=== PATIENT | female | born 2000 | race Two or more races ===

== ENCOUNTER 2020-06-04 00:41 | Emergency (ER) | payer MEDICAID ==
[~2020-06-04] VITALS: Ht 154.9 cm; Wt 52.2 kg
[2020-06-04] MEDS ORDERED: KETOROLAC TROMETHAMINE 60 MG INJ IM ONE ×2 (01:15→01:25)
--- NOTE | 2020-06-04 01:43 | NUR ---
ER MD at bedside with female classer for pelvic exam
[2020-06-04] MEDS ORDERED: AZITHROMYCIN 250 MG TABLET ONE (02:00)
[2020-06-04] MEDS ORDERED: CEFTRIAXONE 500 MG VIAL IM ONE (02:00)
[2020-06-04] MEDS ORDERED: FLUCONAZOLE 100 MG TABLET ONE (02:00)
[2020-06-04] MEDS ORDERED: FLUCONAZOLE 100 MG TABLET PO ONE (02:00)
[2020-06-04] MEDS ORDERED: CEFTRIAXONE 500 MG VIAL ONE (02:00)
[2020-06-04] MEDS ORDERED: AZITHROMYCIN 250 MG TABLET PO ONE (02:00)
[2020-06-04] MEDS ORDERED: LIDOCAINE HCL 2% 20 ML VIAL ONE (02:01)
[2020-06-04 03:20] VITALS: BP 128/75
--- NOTE | 2020-06-04 03:20 | NUR ---
Patient discharged to home in stable condition. Written and verbal after care instructions given. Patient verbalizes understanding of instructions. Stressed follow up or return to ER for worsening s/s. Ambulated from ER with stable gait. All belongings with patient.
[2020-06-04 03:21] LABS: BASOPHILS % (AUTO) 0.3 % (0.0-2.0); EOSINOPHILS % (AUTO) 0.4 % (0.0-7.0); HEMATOCRIT 35.3 % (31.2-41.9); HEMOGLOBIN 12.3 g/dL (10.9-14.3); LYMPHOCYTES # (AUTO) 1.6 K/uL (20.0-40.0); LYMPHOCYTES % (AUTO) 14.6 % (20.5-74.5); MEAN CORPUSCULAR HEMOGLOBIN 33.6 uug (24.7-32.8); MEAN CORPUSCULAR HGB CONC 35 g/dL (32.3-35.6); MEAN CORPUSCULAR VOLUME 96.5 fL (75.5-95.3); MONOCYTES # (AUTO) 0.7 K/uL (2.0-10.0); NEUTROPHILS # (AUTO) 8.8 K/uL (1.8-8.9); NEUTROPHILS % (AUTO) 78.7 % (31.5-64.5); PLATELET COUNT (AUTO) 209 K/uL (179-408); RED BLOOD CELL COUNT(AUTO) 3.65 MIL/uL (3.63-4.92); WHITE BLOOD COUNT (AUTO) 11.2 K/uL (3.8-11.8)
[2020-06-04 03:29] LABS: CREATININE 0.7 mg/dL (0.6-1.3); POTASSIUM 3.2 mmol/L (3.5-5.1)
[2020-06-04 03:34] LABS: BILIRUBIN,DIRECT 0.1 mg/dL (0.0-0.2); BILIRUBIN,TOTAL 0.2 mg/dL (0.2-1.0)
== END 2020-06-04 03:20 | disposition home or self-care (01) ==
LOC: ER 00:43
DX: B37.3 Candidiasis of vulva and vagina (principal); R10.2 Pelvic and perineal pain; R00.0 Tachycardia, unspecified; N86 Erosion and ectropion of cervix uteri
CPT/HCPCS: 36415; 76856; 80048; 80076; 83690; 85025; 96372 ×2; 99284; J0696; J1885; J3490; A4663; Q0144

== ENCOUNTER 2020-06-05 20:19 | Emergency (ER) | payer MEDICAID ==
[~2020-06-05] VITALS: Ht 157.5 cm; Wt 52.2 kg
[2020-06-05] MEDS ORDERED: KETOROLAC TROMETHAMINE 60 MG INJ IM ONE ×2 (20:57→21:00)
--- NOTE | 2020-06-05 21:15 | NUR ---
Patient out of unit for US via wheelchair..
--- NOTE | 2020-06-05 21:34 | NUR ---
Patient back from US with no distress noted.
[2020-06-05 21:37] LABS: *BILIRUBIN,URIN NEGATIVE (NEGATIVE); *BLOOD, URINE 1+ (NEGATIVE); *CLARITY,URINE CLEAR (CLEAR); *COLOR,URINE YELLOW (YELLOW); *KETONES,URINE 2+ (NEGATIVE); *UROBILINOGEN,URINE 0.2 E.U./dl (NORMAL); LEUKOCYTE ESTERASE ,URINE TRACE (NEGATIVE); NITRITE, URINE NEGATIVE (NEGATIVE); UGLUCOSE NEGATIVE (NEGATIVE)
[2020-06-05 21:38] LABS: *URINE HCG, QUAL NEGATIVE (NEGATIVE)
[2020-06-05] MEDS ORDERED: MORPHINE SULFATE 2 MG/1 ML DISP.SYRIN IM ONE (22:45)
[2020-06-05] MEDS ORDERED: MORPHINE SULFATE 2 MG/1 ML DISP.SYRIN ONE (22:45)
--- NOTE | 2020-06-05 23:16 | NUR ---
Patient discharged to home in stable condition. Wheelchaired to private car. Written and verbal after care instructions given. Patient verbalizes understanding of instructions. Stressed follow up or return to ER for worsening s/s.
[2020-06-05 23:17] VITALS: BP 119/65
[2020-06-05 23:24] LABS: BACTERIA,URINE NONE SEEN /HPF (NONE SEEN); RBC,URINE 0-3 /HPF (0-3); SQUAMOUS EPITHELIAL CELL,UR FEW /HPF (NONE SEEN)
== END 2020-06-05 23:18 | disposition home or self-care (01) ==
LOC: ER 20:23
DX: N83.201 Unspecified ovarian cyst, right side (principal); R10.2 Pelvic and perineal pain
CPT/HCPCS: 76856; 81001; 84703; 96372 ×2; 99284; J1885; J2270; A4663

== ENCOUNTER 2020-06-09 15:32 | Inpatient (IN) | payer MEDICAID ==
[~2020-06-09] VITALS: Ht 157.5 cm; Wt 51.8 kg
[2020-06-09] MEDS ORDERED: IV NORMAL SALINE 1000 ML BAG IV ONE (16:00)
[2020-06-09] MEDS ORDERED: ONDANSETRON 4 MG/2 ML VIAL IV ONE (16:00)
[2020-06-09] MEDS ORDERED: HYDROMORPHONE 1 MG/1 ML DISP.SYRIN IV ONE (16:00)
[2020-06-09 16:32] LABS: BASOPHILS # (AUTO) 0.1 K/uL (0.0-8.0); BASOPHILS % (AUTO) 0.4 % (0.0-2.0); EOSINOPHILS % (AUTO) 0.1 % (0.0-7.0); HEMATOCRIT 40.9 % (31.2-41.9); LYMPHOCYTES # (AUTO) 1.1 K/uL (20.0-40.0); LYMPHOCYTES % (AUTO) 8.8 % (20.5-74.5); MEAN CORPUSCULAR HEMOGLOBIN 33.1 uug (24.7-32.8); MEAN CORPUSCULAR HGB CONC 34 g/dL (32.3-35.6); MEAN CORPUSCULAR VOLUME 96.8 fL (75.5-95.3); MONOCYTES # (AUTO) 0.3 K/uL (2.0-10.0); MONOCYTES % (AUTO) 2.1 % (0-11); NEUTROPHILS # (AUTO) 10.8 K/uL (1.8-8.9); NEUTROPHILS % (AUTO) 88.6 % (31.5-64.5); PLATELET COUNT (AUTO) 272 K/uL (179-408); RED BLOOD CELL COUNT(AUTO) 4.23 MIL/uL (3.63-4.92); WHITE BLOOD COUNT (AUTO) 12.2 K/uL (3.8-11.8)
[2020-06-09 16:48] LABS: ALANINE AMINOTRANSFERASE 22 U/L (14-59); ALKALINE PHOSPHATASE 53 U/L (50-136); ASPARTATE AMINOTRANSFERASE 20 U/L (15-37); BILIRUBIN,DIRECT 0.1 mg/dL (0.0-0.2); BILIRUBIN,TOTAL 0.4 mg/dL (0.2-1.0); CARBON DIOXIDE 20 mmol/L (21-32); CHLORIDE 105 mmol/L (98-107); CREATININE 0.8 mg/dL (0.6-1.3); GLUCOSE 130 mg/dL (74-106); LIPASE 97 U/L (73-393); POTASSIUM 3.3 mmol/L (3.5-5.1); TOTAL PROTEIN, SERUM 7.9 g/dL (6.4-8.2); UREA NITROGEN, BLOOD 12 mg/dL (7-18)
[2020-06-09] MEDS ORDERED: HYDROMORPHONE 1 MG/1 ML DISP.SYRIN ONE (17:08)
[2020-06-09] MEDS ORDERED: ONDANSETRON 4 MG/2 ML VIAL ONE (17:08)
--- NOTE | 2020-06-09 17:23 | NUR ---
Female material handler floorperson accompanied female patient for ([employer]).
[2020-06-09] MEDS ORDERED: CEFTRIAXONE 1 G in IV DEXTROSE 5% 50 ML IV ONE (18:15)
[2020-06-09] MEDS ORDERED: METRONIDAZOLE 500 MG/NS 100 ML PIGGYBACK IV ONE (18:15)
[2020-06-09] MEDS ORDERED: METRONIDAZOLE 500 MG/NS 100ML 100 ML IV ONE (18:56)
[2020-06-09] MEDS ORDERED: CEFTRIAXONE /D5W 50ML IVPB **ER PYXIS IV ONE (18:56)
[2020-06-09] MEDS ORDERED: ACETAMINOPHEN 325 MG TABLET PO PRN (19:15)
[2020-06-09] MEDS ORDERED: Z GUARD REMEDY PASTE 57 GM TUBE TOP PRN (19:15)
[2020-06-09] MEDS ORDERED: ONDANSETRON 4 MG/2 ML VIAL IV PRN (19:15)
[2020-06-09 20:20] LABS: *BILIRUBIN,URIN NEGATIVE (NEGATIVE); *BLOOD, URINE 2+ (NEGATIVE); *COLOR,URINE YELLOW (YELLOW); *KETONES,URINE 4+ (NEGATIVE); *UROBILINOGEN,URINE 0.2 E.U./dl (NORMAL); LEUKOCYTE ESTERASE ,URINE NEGATIVE (NEGATIVE); NITRITE, URINE NEGATIVE (NEGATIVE); PH,URINE 5.5 (5.0-8.0); UGLUCOSE NEGATIVE (NEGATIVE)
[2020-06-09 20:21] LABS: *CLARITY,URINE SLIGHTLY CLOUDY (CLEAR)
[2020-06-09 22:20] LABS: BACTERIA,URINE NONE SEEN /HPF (NONE SEEN); SQUAMOUS EPITHELIAL CELL,UR FEW /HPF (NONE SEEN)
[2020-06-09] MEDS: PIPERACILLIN SODIUM/TAZOBACTAM 4.5 G in IV DEXTROSE 5% 50 ML IV SCH (22:50)
--- NOTE | 2020-06-09 22:55 | NUR ---
Pt. admitted to [facility], under care of Dr. SYLVESTER Belongs List completed
--- NOTE | 2020-06-09 23:05 | NUR ---
[facility] Was able to amb[facility] to bed. Denies any SOB at this time. C/o pain 08/31 but denies pain medication at this time. Belongings accounted for. Assessment done. No other issues or concerns at this time.
[2020-06-10] MEDS ORDERED: VANCOMYCIN IV 200 ML ONE (00:01)
[2020-06-10] MEDS ORDERED: PIPERACILLIN/TAZO 4.5 GM VIAL IV ONE (00:04)
[2020-06-10] MEDS: IV 1/2NS 1000 ML 1,000 ML IV PRN ×2 (00:11→18:24)
[2020-06-10 00:41] VITALS: BP 98/50
[2020-06-10 04:00] VITALS: BP 96/50
[2020-06-10] MEDS ORDERED: BUPIVACAINE/EPI PF 0.25% 30 ML VIAL ONE (05:55)
[2020-06-10] MEDS: PIPERACILLIN SODIUM/TAZOBACTAM 4.5 G in IV DEXTROSE 5% 50 ML IV SCH (06:00)
--- NOTE | 2020-06-10 06:10 | NUR ---
Pt was taken for surgery and was not able to administer last bag of zosyn at 0600H
--- NOTE | 2020-06-10 06:10 | NUR ---
Pt slept throughout the night. Denies any pain or discomfort. Was taken for surgery at 0600H.
[2020-06-10 06:28] LABS: BASOPHILS % (AUTO) 0.3 % (0.0-2.0); EOSINOPHILS % (AUTO) 0.3 % (0.0-7.0); HEMATOCRIT 34.6 % (31.2-41.9); HEMOGLOBIN 11.9 g/dL (10.9-14.3); LYMPHOCYTES # (AUTO) 1.8 K/uL (20.0-40.0); MEAN CORPUSCULAR HEMOGLOBIN 33.3 uug (24.7-32.8); MEAN CORPUSCULAR HGB CONC 35 g/dL (32.3-35.6); MEAN CORPUSCULAR VOLUME 96.4 fL (75.5-95.3); MONOCYTES # (AUTO) 0.8 K/uL (2.0-10.0); MONOCYTES % (AUTO) 6.4 % (0-11); NEUTROPHILS # (AUTO) 9.5 K/uL (1.8-8.9); PLATELET COUNT (AUTO) 227 K/uL (179-408); RED BLOOD CELL COUNT(AUTO) 3.59 MIL/uL (3.63-4.92); WHITE BLOOD COUNT (AUTO) 12.2 K/uL (3.8-11.8)
[2020-06-10] MEDS ORDERED: MIDAZOLAM HCL 2 MG/2 ML VIAL ONE (06:35)
[2020-06-10] MEDS ORDERED: FENTANYL CITRATE 100 MCG/2 ML AMPUL ONE ×2 (06:35→07:45)
[2020-06-10] MEDS ORDERED: SUCCINYLCHOLINE CHLORIDE 200 MG/10 ML VIAL ONE (06:36)
[2020-06-10] MEDS ORDERED: PROPOFOL 200 MG/20 ML BOTTLE ONE (06:36)
[2020-06-10 06:37] LABS: BILIRUBIN,TOTAL 0.5 mg/dL (0.2-1.0); CREATININE 0.7 mg/dL (0.6-1.3); MAGNESIUM 1.9 mg/dL (1.8-2.4); PHOSPHOROUS 3.5 mg/dL (2.5-4.9); POTASSIUM 3.6 mmol/L (3.5-5.1); TOTAL PROTEIN, SERUM 6.5 g/dL (6.4-8.2)
--- NOTE | 2020-06-10 08:43 | NUR ---
pt received from recovery room via bed in stable condition
[2020-06-10] MEDS: PIPERACILLIN SODIUM/TAZOBACTAM 3.37 G in IV DEXTROSE 5% 100 ML IV SCH ×3 (09:04→22:45)
[2020-06-10 11:48] VITALS: BP 99/53
[2020-06-10] MEDS: HYDROCODONE/APAP 5-325MG TABLET PO PRN ×2 (13:38→22:45)
[2020-06-10] MEDS ORDERED: PIPERACILLIN SODIUM/TAZOBACTAM 4.5 G in IV DEXTROSE 5% 50 ML IV SCH (14:00)
--- NOTE | 2020-06-10 15:08 | NUR ---
pt walk in the hallway tolerated well
[2020-06-10 16:00] VITALS: BP 105/45
[2020-06-10 20:06] VITALS: BP 118/67
[2020-06-11 04:46] VITALS: BP 107/67
[2020-06-11] MEDS: PIPERACILLIN SODIUM/TAZOBACTAM 3.37 G in IV DEXTROSE 5% 100 ML IV SCH (06:28)
[2020-06-11 12:46] VITALS: BP 104/48
== END 2020-06-11 12:30 | disposition home or self-care (01) | DRG 234 ==
LOC: ER 15:32 → MEDSURG3 22:42
PROVIDERS: ADMIT Internal Medicine; ATTEND Internal Medicine
PROC: 0DTJ4ZZ Resection of Appendix, Percutaneous Endoscopic Approach (ICD-10-PCS; principal; 2020-06-10)
DX: K35.80 Unspecified acute appendicitis (principal)
CPT/HCPCS: 36415; 76856; 83690; 83735; 84100; 85025; G0378; J0330; J0696; J1170; J2250; J2405; J2543; J3010; J3370; J3490; J7030; J7060

== ENCOUNTER 2020-11-26 10:48 | Emergency (ER) | payer MEDICAID ==
[~2020-11-26] VITALS: Ht 157.5 cm; Wt 53.1 kg
--- NOTE | 2020-11-26 11:07 | NUR ---
PT IS IN ROOM #2A. DR PADILLA EVALUATED THE PT.
[2020-11-26] MEDS ORDERED: TDAP DIPH,PERTUSS,TET VAC/PF 0.5 ML DISP.SYRIN IM ONE ×2 (11:15→11:19)
[2020-11-26] MEDS ORDERED: LIDOCAINE HCL 1% 20 ML VIAL IJ ONE (11:15)
--- NOTE | 2020-11-26 12:14 | NUR ---
PT WAS D/C'd TO HOME AFTER DR PADILLA RE-EVALUATION. D/C INSTRUCTIONS GIVEN TO THE PT BY DR PADILLA. NO BLEEDING. DRESSING IS INTACT.
[2020-11-26 12:15] VITALS: BP 113/68
== END 2020-11-26 12:16 | disposition home or self-care (01) ==
LOC: ER 10:53
DX: S61.213A Laceration without foreign body of left middle finger without damage to nail, initial encounter (principal); W25.XXXA Contact with sharp glass, initial encounter; Y93.G1 Activity, food preparation and clean up; Y92.89 Other specified places as the place of occurrence of the external cause
CPT/HCPCS: 12001; 90471; 90715; 99283; J3490; A4217; A4663

== ENCOUNTER 2020-12-05 13:27 | Emergency (ER) | payer MEDICAID ==
[~2020-12-05] VITALS: Ht 157.5 cm; Wt 53.5 kg
--- NOTE | 2020-12-05 14:07 | NUR ---
PT WAS EVALUATED BY DR CARPENTER. PT WAS D/C'd TO HOME. D/C INSTRUCTIONS GIVEN TO THE PT BY DR CARPENTER.
[2020-12-05 14:13] VITALS: BP 123/66
== END 2020-12-05 14:28 | disposition home or self-care (01) ==
LOC: ER 13:28
DX: S61.213D Laceration without foreign body of left middle finger without damage to nail, subsequent encounter (principal); W45.8XXD Other foreign body or object entering through skin, subsequent encounter
CPT/HCPCS: A4663